=== PATIENT | female | born 1970 | race Caucasian/White ===

== ENCOUNTER → 2021-04-22 | Day surgery (SDC) | payer OTHER ==
[~2021-04-22] MED LIST: ACETAMINOPHEN 1000 MG/100 ML 100 ML IV ONE; ACETAZOLAMIDE250 MG PO; ALBUTEROL0.63 MG/3 NEB; ARMOUR THYROID60 MG PO; BUPROPION XL150 MG PO; DEXAMETHASONE SOD PHOS 10 MG/1 ML VIAL ONE; DIOVAN80 MG PO; EPHEDRINE SULFATE INJ 50 MG/ML VIAL ONE; EPINEPHRINE HCL 1:1000 1ML 1 MG/ML AMP ONE; FENTANYL CITRATE/PF 100MCG/2 ML INJ ONE; KLONOPIN1 MG PO; LIDOCAINE 1% W/EPINEPHRINE 20 ML VIAL ONE; LIDOCAINE HCL 2% LOCAL INJ 5 ML SDV VIAL INJ ONE; METOCLOPRAMIDE HCL 10 MG/2ML VIAL ONE; MIDAZOLAM HCL 2 MG/2 ML VIAL ONE; ONDANSETRON HCL INJ 2MG/ML 2ML 2 MG/ML VIAL ONE; PANTOPRAZOLE SO40 MG PO; POTASSIUM CHLO10 ME1 PO; POVIDONE IODINE 0.05% 0.05 % ML PO ONE; PROMETHAZINE HCL (IM) 25 MG/ML VIAL IM ONE; PROPOFOL IV EMULSION 10 MG/ML 20 ML VIAL ONE; ROCURONIUM BROMIDE 10 MG/ML 5ML VIAL IV ONE; SEVOFLURANE INHAL SOLN 250 ML PEN BTL ONE; SIMVASTATIN40 MG PO; SUGAMMADEX SODIUM 200 MG/2 ML VIAL IV ONE; TOPAMAX100 MG PO; ULTRAM50 MG PO; ZOFRAN4 MG PO
[2021-04-22 10:25] VITALS: BP 124/77
== END | disposition home or self-care (01) ==
LOC: OR 06:21
PROVIDERS: ATTEND Otolaryngology Otolaryngology/Facial Plastic Surgery
DX: Z01.810 Encounter for preprocedural cardiovascular examination (principal); Z88.0 Allergy status to penicillin; Z88.8 Allergy status to other drugs, medicaments and biological substances; E03.9 Hypothyroidism, unspecified; K21.9 Gastro-esophageal reflux disease without esophagitis; J45.909 Unspecified asthma, uncomplicated; I10 Essential (primary) hypertension; F32.A Depression, unspecified
CPT/HCPCS: 31288; 88305; 93005; J0131; J0171; J1100; J2001; J2250; J2405; J2550; J2704; J2765; J3010